=== PATIENT | male | born 2005 | race Asian ===

== ENCOUNTER 2023-04-11 07:39 | Emergency (ER) | payer MEDICAID ==
[~2023-04-11] VITALS: Ht 180.3 cm; Wt 87.2 kg
[~2023-04-11 07:39] MED LIST: [UNRECOGNIZED DRUG - OTHER]
[2023-04-11] MEDS ORDERED: NAP500T PO (09:27)
[2023-04-11 09:36] VITALS: BP 137/86; PULSE 87; RESP 18; TEMP 97.4; O2SAT 98
== END 2023-04-11 09:52 | disposition home or self-care (01) ==
LOC: ER 07:39
DX: S90.31XA Contusion of right foot, initial encounter (principal); S80.211A Abrasion, right knee, initial encounter; S50.312A Abrasion of left elbow, initial encounter; V00.131A Fall from skateboard, initial encounter; Y93.51 Activity, roller skating (inline) and skateboarding; Y92.89 Other specified places as the place of occurrence of the external cause; Y99.8 Other external cause status
CPT/HCPCS: 73610; 73630